=== PATIENT | male | born 1995 | race Caucasian/White ===

== ENCOUNTER 2019-06-01 04:18 | Emergency (ER) | payer BC, OTHER ==
[2019-06-01 04:28] VITALS: BP 108/68; PULSE 66; RESP 20; TEMP 98.3
[2019-06-01] MEDS ORDERED: AMOXIC-POT CLAV 875-125MG 1 EACH TAB PO STA (04:50)
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
== END 2019-06-01 05:05 | disposition home or self-care (01) ==
LOC: EC 04:18
DX: T79.8XXA Other early complications of trauma, initial encounter (principal); S01.532A Puncture wound without foreign body of oral cavity, initial encounter; F17.200 Nicotine dependence, unspecified, uncomplicated; W20.8XXA Other cause of strike by thrown, projected or falling object, initial encounter
CPT/HCPCS: 99283

== ENCOUNTER 2022-03-24 18:41 | Emergency (ER) | payer OTHER ==
--- NOTE | 2022-03-24 19:35 | ED ---
General Adult HPI - General Chief complaint: Headache Stated complaint: Altered mental status Time Seen by Provider: 03/24/22 19:33 Source: patient, family Mode of arrival: ambulatory Limitations: no limitations - History of Present Illness Initial comments: Patient presents to the ED with his for evaluation. Per , the patient has a history of "migraines", and she states that he has had a migraine headache since this morning. She states that he has been complaining of having a headache, and he has been vomiting since this morning. She states that he has been unable to keep anything down. She states that what concerned her was that he began to hallucinate this evening, and that is why she has brought him to the ED today. Patient is A and O 4 on arrival to the ED. Patient admits that he has had a diffuse headache, nausea and vomiting since this morning. Patient states that his symptoms are typical of his migraine headaches. Patient also states that he has had diffuse lumbar back pain today, and he is uncertain why. Patient denies any known trauma or injury, sudden onset of headache, LOC, neck pain or stiffness, fever or chills, focal numbness/weakness/neuro deficit, visual changes, speech difficulty, cough or cold symptoms, chest pain, dyspnea, dizziness, abdominal pain, diarrhea or constipation, dysuria/hematuria/urinary frequency/urinary symptoms, leg pain/numbness/weakness, incontinence, urinary retention, or any other symptoms or complaints. Patient admits to occasional marijuana use. Patient denies any alcohol use. - Related Data Home Medications Medication Instructions Recorded Confirmed No Known Home Medications 03/24/22 03/24/22 Allergies Allergy/AdvReac Type Severity Reaction Status Date / Time No Known Allergies Allergy Verified 03/24/22 20:53 Review of Systems ROS Statement: Those systems with pertinent positive or pertinent negative responses have been documented in the HPI. ROS Other: All systems not noted in ROS Statement are negative. Past Medical History Past Medical History: No Reported History Additional Past Medical History / Comment(s): SEASONAL (SPRING) ALLERGIES , Migraines History of Any Multi-Drug Resistant Organisms: None Reported Past Surgical History: No Surgical Hx Reported Past Psychological History: No Psychological Hx Reported Smoking Status: Vaper Past Alcohol Use History: Occasional Past Drug Use History: Marijuana - Past Family History Mother Additional Family Medical History / Comment(s): MIGRAINE HEADACHES General Exam Limitations: no limitations General appearance: alert, in no apparent distress Head exam: Present: atraumatic, normocephalic Eye exam: Present: normal appearance, PERRL, EOMI ENT exam: Present: normal oropharynx, mucous membranes moist Neck exam: Present: other (Trachea is in midline; no evidence of nuchal rigidity or meningeal signs on exam). Absent: tenderness, meningismus Respiratory exam: Present: normal lung sounds bilaterally. Absent: respiratory distress, wheezes, rales, rhonchi, stridor Cardiovascular Exam: Present: regular rate, normal rhythm, normal heart sounds, other (Normal radial pulses bilaterally) GI/Abdominal exam: Present: soft. Absent: distended, tenderness, guarding Extremities exam: Present: full ROM. Absent: tenderness, pedal edema Back exam: Present: normal inspection. Absent: tenderness, CVA tenderness (R), CVA tenderness (L) Neurological exam: Present: alert, oriented X3, CN II-XII intact, other (No evidence of the lower extremity neurological deficit or saddle anesthesia on exam). Absent: motor sensory deficit Psychiatric exam: Present: normal affect, normal mood Skin exam: Present: warm, dry, intact, normal color Course Vital Signs 03/24/22 03/24/22 03/24/22 18:55 19:42 20:21 Temperature 99 F 98.4 F Pulse Rate 110 H 100 72 Respiratory 24 16 16 Rate Blood Pressure 107/58 101/76 102/52 O2 Sat by Pulse 97 99 100 Oximetry 03/24/22 03/24/22 21:08 22:22 Temperature 98.8 F Pulse Rate 78 Respiratory 16 16 Rate Blood Pressure 110/78 O2 Sat by Pulse 99 Oximetry - Reevaluation(s) Reevaluation #1: 03/24/22 23:40 Patient remains A&O x 4 and breathing comfortably. Patient states that his symptoms have improved with ED treatment, and he wishes to go home at this time. Patient denies development of any new symptoms while in the ED. Patient has a nonfocal neurological exam. Patient is afebrile and without nuchal rigidity or meningeal signs on exam. Patient's labs are fairly unremarkable. Patient's head CT is negative. I do not suspect an emergent medical condition at this time. Will discharge patient home with his at this time. Patient and are aware the patient's test results. They were counseled about headaches, vomiting and lumbar back pain. There were clearly explained return and follow- up instructions, and they feel comfortable with this plan. Medical Decision Making - Lab Data Result diagrams: 03/24/22 19:51 03/24/22 19:51 Lab Results 03/24/22 03/24/22 03/24/22 Range/Units 19:51 19:51 20:45 WBC 7.1 (3.8-10.6) k/uL RBC 5.18 (4.30-5.90) m/uL Hgb 15.8 (13.0-17.5) gm/dL Hct 43.4 (39.0-53.0) % MCV 83.7 (80.0-100.0) fL MCH 30.5 (25.0-35.0) pg MCHC 36.5 (31.0-37.0) g/dL RDW 12.1 (11.5-15.5) % Plt Count 189 (150-450) k/uL MPV 8.1 Neutrophils % 88 % Lymphocytes % 3 % Monocytes % 7 % Eosinophils % 0 % Basophils % 1 % Neutrophils # 6.2 (1.3-7.7) k/uL Lymphocytes # 0.2 L (1.0-4.8) k/uL Monocytes # 0.5 (0-1.0) k/uL Eosinophils # 0.0 (0-0.7) k/uL Basophils # 0.0 (0-0.2) k/uL Sodium 138 (137-145) mmol/L Potassium 3.7 (3.5-5.1) mmol/L Chloride 104 (98-107) mmol/L Carbon Dioxide 21 L (22-30) mmol/L Anion Gap 13 mmol/L BUN 16 (9-20) mg/dL Creatinine 1.10 (0.66-1.25) mg/dL Est GFR (CKD-EPI)AfAm >90 (>60 ml/min/1.73 sqM) Est GFR (CKD-EPI)NonAf >90 (>60 ml/min/1.73 sqM) Glucose 115 H (74-99) mg/dL Calcium 10.1 (8.4-10.2) mg/dL Total Bilirubin 0.8 (0.2-1.3) mg/dL AST 26 (17-59) U/L ALT 20 (4-49) U/L Alkaline Phosphatase 56 (38-126) U/L Total Protein 6.7 (6.3-8.2) g/dL Albumin 5.2 H (3.5-5.0) g/dL Urine Color Yellow Urine Appearance Clear (Clear) Urine pH 8.5 H (5.0-8.0) Ur Specific Peggs 1.022 (1.001-1.035) Urine Protein 1+ H (Negative) Urine Glucose (UA) Negative (Negative) Urine Ketones 2+ H (Negative) Urine Blood Negative (Negative) Urine Nitrite Negative (Negative) Urine Bilirubin Negative (Negative) Urine Urobilinogen <2.0 (<2.0) mg/dL Ur Leukocyte Esterase Negative (Negative) Urine RBC 5 (0-5) /hpf Urine WBC <1 (0-5) /hpf Urine Mucus Rare H (None) /hpf Urine Opiates Screen Not Detected (NotDetected) Ur Oxycodone Screen Not Detected (NotDetected) Urine Methadone Screen Not Detected (NotDetected) Ur Propoxyphene Screen Not Detected (NotDetected) Ur Barbiturates Screen Not Detected (NotDetected) U Tricyclic Antidepress Not Detected (NotDetected) Ur Phencyclidine Scrn Not Detected (NotDetected) Ur Amphetamines Screen Not Detected (NotDetected) U Methamphetamines Scrn Not Detected (NotDetected) U Benzodiazepines Scrn Not Detected (NotDetected) Urine Cocaine Screen Not Detected (NotDetected) U Marijuana (THC) Screen Detected H (NotDetected) Serum Alcohol <10 mg/dL - Radiology Data Noncontrast head CT: Normal unenhanced head CT scan. Disposition Clinical Impression: Headache, Nausea and vomiting, Lumbar back pain Disposition: HOME SELF-CARE Condition: Stable Instructions (If sedation given, give patient instructions): Acute Headache (ED), Acute Nausea and Vomiting (ED), Back Pain (ED) Additional Instructions: Return to the ER immediately should you develop new or worsening pain, confusion, a fever, neck stiffness, numbness or weakness, persistent vomiting, loss of control of your bladder or bowels, shortness of breath, feeling dizzy or faint, or new or worsening symptoms. Follow up closely with your primary care provider. Is patient prescribed a controlled substance at d/c from ED?: No Referrals: Nonstaff,Physician [REFERRING] - 1-2 days Leif Deluna MD [STAFF PHYSICIAN] - 1-2 days Time of Disposition: 23:44
[2022-03-24 19:43] VITALS: RESP 16
[2022-03-24] MEDS ORDERED: diphenhydrAMINE 50 MG/ML 1 ML VIAL IVP STA (19:43)
[2022-03-24] MEDS ORDERED: METOCLOPRAMIDE 5 MG/ML 2 ML VIAL IVP STA (19:43)
[2022-03-24] MEDS ORDERED: SODIUM CHLORIDE 0.9% 1,000 ML IV STA (19:43)
[2022-03-24 20:02] LABS: Basophils % (A) 1 %; Eosinophils % (A) 0 %; HCT 43.4 % (39.0-53.0); HGB 15.8 gm/dL (13.0-17.5); Lymphocytes # (A) 0.2 k/uL (1.0-4.8); Lymphocytes % (A) 3 %; MCH 30.5 pg (25.0-35.0); MCHC 36.5 g/dL (31.0-37.0); MCV 83.7 fL (80.0-100.0); Mean Platelet Volume 8.1; Monocytes # (A) 0.5 k/uL (0-1.0); Monocytes % (A) 7 %; Neutrophils # (A) 6.2 k/uL (1.3-7.7); Neutrophils % (A) 88 %; Platelet Count 189 k/uL (150-450); RBC 5.18 m/uL (4.30-5.90); RDW 12.1 % (11.5-15.5); WBC 7.1 k/uL (3.8-10.6)
[2022-03-24 20:12] LABS: ALT 20 U/L (4-49); AST 26 U/L (17-59); African American GFR (CKD) >90 (>60 ml/min/1.73 sqM); Albumin 5.2 g/dL (3.5-5.0); Alcohol <10 mg/dL; Alkaline Phosphatase 56 U/L (38-126); Anion Gap 13 mmol/L; Blood Urea Nitrogen 16 mg/dL (9-20); Calcium 10.1 mg/dL (8.4-10.2); Carbon Dioxide 21 mmol/L (22-30); Chloride 104 mmol/L (98-107); Glucose 115 mg/dL (74-99); Non-African American GFR(CKD) >90 (>60 ml/min/1.73 sqM); Potassium 3.7 mmol/L (3.5-5.1); Sodium 138 mmol/L (137-145); Total Bilirubin 0.8 mg/dL (0.2-1.3); Total Protein 6.7 g/dL (6.3-8.2)
--- NOTE | 2022-03-24 20:17 | CT ---
EXAMINATION TYPE: CT brain wo con DATE OF EXAM: 03/24/2022 COMPARISON: None HISTORY: Headache, AMS CT DLP: 1129.4 mGycm Automated exposure control for dose reduction was used. Images obtained of the brain with no contrast. Ventricles and sulci appear normal. There is no mass effect or midline shift. No sign of intracranial hemorrhage. The calvarium is intact. Skull is intact. There is normal aeration of the mastoid sinuse s. IMPRESSION: Normal unenhanced head CT scan
[2022-03-24 21:06] LABS: Amphetamine Screen,Urine Not Detected (NotDetected); Appearance,Urine Clear (Clear); Barbiturate Screen,Urine Not Detected (NotDetected); Benzodiazepines Screen,Urine Not Detected (NotDetected); Bilirubin,Urine Negative (Negative); Blood,Urine Negative (Negative); Cocaine Screen,Urine Not Detected (NotDetected); Color,Urine Yellow; Glucose,Urine (UA) Negative (Negative); Ketones,Urine 2+ (Negative); Leukocyte Esterase,Urine Negative (Negative); Methadone Screen, Urine Not Detected (NotDetected); Mucus,Urine Rare /hpf; Nitrite,Urine Negative (Negative); Opiate Screen,Urine Not Detected (NotDetected); Oxycodone Screen, Urine Not Detected (NotDetected); PH, Urine 8.5 (5.0-8.0); Phencyclidine Screen,Urine Not Detected (NotDetected); Protein,Urine 1+ (Negative); RBC,Urine 5 /hpf (0-5); Specific Gravity,Urine 1.022 (1.001-1.035); Tricyclic Antidepressant,Urine Not Detected (NotDetected); Urn Cannabinoid Scrn Detected (NotDetected); Urobilinogen,Urine <2.0 mg/dL (<2.0); WBC,Urine <1 /hpf (0-5)
[2022-03-24 21:10] VITALS: BP 110/78
[2022-03-24] MEDS ORDERED: KETOROLAC 15 MG/ML 1 ML VIAL IVP STA (21:15)
[2022-03-24] MEDS ORDERED: ONDANSETRON 4 MG ODT STARTER PACK 2 TAB BTL PO STA (23:42)
[2022-03-24 23:56] VITALS: PULSE 76; TEMP 98.9
== END 2022-03-24 23:56 | disposition home or self-care (01) ==
LOC: EC 18:41
DX: M54.50 Low back pain, unspecified (principal); F17.290 Nicotine dependence, other tobacco product, uncomplicated; F12.90 Cannabis use, unspecified, uncomplicated
CPT/HCPCS: 36415; 80053; 85025; 81001; 80306; 80320; 70450; 99285; 96374; 96375 ×2; 96361; J1200; J2765; J1885; S0119